=== PATIENT | female | born 1985 | race African-American/Black ===

== ENCOUNTER 2017-03-01 10:31 | Emergency (ER) | payer MEDICAID ==
[~2017-03-01] VITALS: Ht 162.6 cm; Wt 86.0 kg
[2017-03-01 10:33] VITALS: BP 132/77; PULSE 76; RESP 20; TEMP 97.5; O2SAT 100
[2017-03-01 11:28] LABS: AUTOMATED NEUTROPHIL # 4.4 TH/MM3 (1.8-7.7); BASOPHIL % 0.5 % (0.0-2.0); EOSINOPHIL % 0.5 % (0.0-4.0); HEMATOCRIT 36.7 % (35.0-46.0); HEMO FLAGS DIFF FINAL; LYMPH % 31.9 % (9.0-44.0); LYMPHOCYTE # 2.4 TH/MM3 (1.0-4.8); MEAN CELL VOLUME 80.2 FL (80.0-100.0); MEAN CORPUSCULAR HEMOGLOBIN 25.2 PG (27.0-34.0); MEAN CORPUSCULAR HGB CONC 31.4 % (32.0-36.0); MONO % 7.9 % (0.0-8.0); NEUT % 59.2 % (16.0-70.0); PLATELET COUNT 220 TH/MM3 (150-450); RED BLOOD COUNT 4.57 MIL/MM3 (4.00-5.30); RED CELL DISTRIBUTION WIDTH 14.1 % (11.6-17.2); WHITE BLOOD COUNT 7.5 TH/MM3 (4.0-11.0)
--- NOTE | 2017-03-01 11:31 | PD ---
HPI Chief Complaint: Clinical Assoc Problem/Complaint Time Seen by Provider: 11:28 Travel History International Travel<30 days: No Contact w/Intl Traveler<30days: No Traveled to known affect area: No History of Present Illness HPI 31-year-old female that presents to the ED for evaluation of vaginal bleeding and abdominal cramping. Per patient she believes she may be at about 2 months . Per patient her last missed appear was about 2 months to a month and a half. Per patient she had a miscarriage in the past and is concerned about this. She states that the pain is mainly on the pelvic area and moves to the back. Per patient the bleeding had some clots and was moderate. She states that the pain is 3 out of 10 and comes and goes more like a cramping pain. She denies any chest pain or shortness of breath. She denies any STD exposure. No urinary symptoms. No bowel movement issues. Per patient she has not seen anybody for her . She has no allergies to medication. She states that she believes that she is O-. PFSH Past Medical History Thyroid Disease: Yes (UNABLE TO GIVE DETAILS) ?: LMP: 12/30/2016 : 3 Para: 2 Miscarriage: 1 Social History Alcohol Use: Yes (SOCIAL) Tobacco Use: No Substance Use: No Allergies-Medications (Allergen,Severity, Reaction): Coded Allergies: No Known Allergies (Unverified , 03/01/17) Reported Meds & Prescriptions Reported Meds & Active Scripts Active Metronidazole 500 Mg Tab 500 Mg PO BID 7 Days Review of Systems Except as stated in HPI: all other systems reviewed are Neg Physical Exam Narrative GENERAL: SKIN: Warm and dry. HEAD: Atraumatic. Normocephalic. EYES: Pupils equal and round. No scleral icterus. No injection or drainage. ENT: No nasal bleeding or discharge. Mucous membranes pink and moist. Tongue is midline. No uvula deviation. NECK: Trachea midline. No JVD. CARDIOVASCULAR: Regular rate and rhythm. No murmurs, S3, S4. RESPIRATORY: No accessory muscle use. Clear to auscultation. Breath sounds equal bilaterally. GASTROINTESTINAL: Abdomen soft, non-tender, nondistended. Hepatic and splenic margins not palpable. Pelvic exam: Done with female nurse present. Has some minimal vaginal bleeding as well as brownish discharge. OS closed. No cervical tenderness. No lymphadenopathy. MUSCULOSKELETAL: Extremities without clubbing, cyanosis, or edema. No obvious deformities. Full range of motion of the upper and lower extremities bilaterally. 2+ pulses bilaterally. NEUROLOGICAL: Awake and alert. No obvious cranial nerve deficits. Motor grossly within normal limits. Five out of 5 muscle strength in the arms and legs. Normal speech. PSYCHIATRIC: Appropriate mood and affect; insight and judgment normal. Data Data Last Documented VS Vital Signs Date Time Temp Pulse Resp B/P Pulse Ox O2 Delivery O2 Flow Rate FiO2 03/01/17 13:51 97 03/01/17 10:33 97.5 76 20 132/77 Room Air Orders Beta Hcg (Quant/Titer) (03/01/17 10:52) Complete Blood Count With Diff (03/01/17 10:52) Basic Metabolic Panel (Bmp) (03/01/17 10:52) Gc And Chlamydia Pcr (03/01/17 10:52) Complete Rh (03/01/17 10:52) Wet Prep Profile (03/01/17 10:52) Urinalysis - C+S If Indicated (03/01/17 10:52) Iv Access Insert/Monitor (03/01/17 10:52) Ed Urine Pregnancytest Poc (03/01/17 10:52) Us Pelvis Preg(Sgl/1st Gestat) (03/01/17 10:52) Labs Laboratory Tests Test 03/01/17 03/01/17 03/01/17 11:10 11:15 12:15 Urine Color LIGHT-YELLOW Urine Turbidity CLEAR Urine pH 8.0 Urine Specific [place] 1.014 Urine Protein NEG mg/dL Urine Glucose (UA) NEG mg/dL Urine Ketones NEG mg/dL Urine Occult Blood SMALL Urine Nitrite NEG Urine Bilirubin NEG Urine Urobilinogen LESS THAN 2.0 MG/DL Urine Leukocyte Esterase NEG Urine RBC 9 /hpf Urine WBC 1 /hpf Urine Squamous Epithelial <1 /hpf Cells Microscopic Urinalysis Comment CULT NOT INDICATED White Blood Count 7.5 TH/MM3 Red Blood Count 4.57 MIL/MM3 Hemoglobin 11.5 GM/DL Hematocrit 36.7 % Mean Corpuscular Volume 80.2 FL Mean Corpuscular Hemoglobin 25.2 PG Mean Corpuscular Hemoglobin 31.4 % Concent Red Cell Distribution Width 14.1 % Platelet Count 220 TH/MM3 Mean Platelet Volume 8.1 FL Neutrophils (%) (Auto) 59.2 % Lymphocytes (%) (Auto) 31.9 % Monocytes (%) (Auto) 7.9 % Eosinophils (%) (Auto) 0.5 % Basophils (%) (Auto) 0.5 % Neutrophils # (Auto) 4.4 TH/MM3 Lymphocytes # (Auto) 2.4 TH/MM3 Monocytes # (Auto) 0.6 TH/MM3 Eosinophils # (Auto) 0.0 TH/MM3 Basophils # (Auto) 0.0 TH/MM3 CBC Comment DIFF FINAL Differential Comment Sodium Level 138 MEQ/L Potassium Level 3.9 MEQ/L Chloride Level 104 MEQ/L Carbon Dioxide Level 26.9 MEQ/L Anion Gap 7 MEQ/L Blood Urea Nitrogen 9 MG/DL Creatinine 0.66 MG/DL Estimat Glomerular Filtration 127 ML/MIN Rate Random Glucose 92 MG/DL Calcium Level 8.8 MG/DL Human Chorionic Gonadotropin, 556001 MIU/ML Quant Blood Type O POSITIVE Rho(D) Type POSITIVE Clue Cells (Wet Prep) PRESENT Vaginal Trichomonas (Wet Prep) NONE SEEN Vaginal Yeast (Wet Prep) NONE SEEN MDM Medical Decision Making Medical Screen Exam Complete: Yes Emergency Medical Condition: Yes Medical Record Reviewed: Yes Interpretation(s) CBC & BMP Diagram 03/01/17 11:15 beta [place] the 18608w wet prep positive for clue cells UA positive for blood US shows IUP of 8 weeks with normal HR, subarachnoid hemorrhage. Differential Diagnosis Vaginal bleeding versus miscarriage versus versus ectopic versus bleeding during versus infection Narrative Course 31-year-old female that presents to the ED for evaluation of vaginal bleeding and pain. Patient was properly examined and was found to have signs and symptoms concerning for miscarriage versus ectopic. Labs and imaging ordered. Labs and imaging showed IUP with normal heart rate. Patient also has BV. Case was discussed in my attending who agrees with plan. Condition is for recheck in 2 days to make sure that the beta is increasing. Also patient will be treated for this with Flagyl. She was instructed to continue to Alecia vitamins. Tylenol for pain. Close follow with PCP. See ED for any worsening symptoms. Diagnosis Primary Impression: Threatened Additional Impression: BV (bacterial vaginosis) Patient Instructions: General Instructions Additional Instructions: Take medication as prescribed. Continue vitamins. Recheck in 48 hours for reevaluation of the beta hCG. See ED for any worsening symptoms. Follow with PCP. Only Tylenol for pain as needed. Med/Other Pt SpecificInfo: Prescription(s) given Scripts Metronidazole 500 Mg Hve242 Mg PO BID 7 Days Ref 0 Prov:Kerry Tran MD 03/01/17 Disposition: 01 DISCHARGE HOME Condition: Des Yung Mar 01, 2017 11:31
[2017-03-01 11:42] LABS: BLOOD, URINE SMALL (NEG); GLUCOSE,URINE NEG (NEG); KETONE, URINE NEG (NEG); NITRITE,URINE NEG (NEG); SQUAMOUS EPITHELIAL CELL URINE <1 /hpf (0-5); URINE COLOR LIGHT-YELLOW (YELLW/STRAW)
[2017-03-01 11:46] LABS: COMMENT (UR) CULT NOT INDICATED; CULTURE IF INDICATED CULT NOT INDICATED
[2017-03-01 12:26] LABS: BICARBONATE 26.9 MEQ/L (21.0-32.0); POTASSIUM 3.9 MEQ/L (3.5-5.1)
--- NOTE | 2017-03-01 13:44 | RADRPT ---
EXAM DATE/TIME: 03/01/2017 12:49 [facility] COMPARISON: No previous studies available for comparison. INDICATIONS : Pelvic bleeding. LAB(S): Beta-hC,705 MEDICAL HISTORY : . Thyroid disease. SURGICAL HISTORY : section. ENCOUNTER: Initial ACUITY: 4-6 days PAIN SCORE: 7/10 LOCATION: Bilateral pelvis MEASUREMENTS: UTERUS: 11.3 x 6.6 x 6.9 cm ENDOMETRIAL STRIPE: >20 mm RIGHT OVARY: 3.1 x 3.4 x 2.6 cm LEFT OVARY: 2.8 x 2.7 x 1.5 cm CROWN RUMP LENGTH: 2.0 cm = 8 WKS 4 DAYS FHR: 169 BPM FINDINGS: UTERUS: The myometrium has homogeneous echotexture without mass. There is a gestational sac in the endometri al cavity measuring 5.7 x 2.7 x 4.1 cm. Yolk sac is present an embryo is identified with crown-rump l ength measurement of 2.0 cm indicating gestational age of 8 weeks and 4 days. Questionable small subc horionic hemorrhage is identified. RIGHT OVARY: Ovary contains no mass or significant cystic lesion. Follicles are present and largest simple cyst m easures 2.7 cm. LEFT OVARY: Ovary contains no mass or significant cystic lesion. MISCELLANEOUS: No free fluid. CONCLUSION: 1. There is an IUP with estimated age of 8 weeks and 4 days with normal heart rate. There is qu estionable small subchorionic hemorrhage. 2. Multiple right follicles are present measuring up to 2.7 cm. Richard Mcmahan MD on March 01, 2017 at 13:39 Board Certified Radiologist. This report was verified electronically.
[2017-03-01] MEDS ORDERED: METR500T10 PO (13:47)
[2017-03-01 15:58] LABS: CHLAMYDIA PCR NOT DETECTED (NOT DETECT); NEISSERIA PCR NOT DETECTED (NOT DETECT)
== END 2017-03-01 14:46 | disposition home or self-care (01) ==
LOC: NEPD 10:31
DX: O20.0 Threatened abortion (principal); N76.0 Acute vaginitis; Z3A.08 8 weeks gestation of pregnancy
CPT/HCPCS: 76801; 80048; 81001; 84702; 84703; 85025; 86901; 87210; 87491; 87591; 99284

== ENCOUNTER 2017-03-04 10:46 | Emergency (ER) | payer MEDICAID ==
[~2017-03-04] VITALS: Ht 162.6 cm; Wt 80.0 kg
[~2017-03-04 10:46] MED LIST: METR500T10 PO
[2017-03-04 10:51] VITALS: BP 115/66; PULSE 78; RESP 18; TEMP 98.3; O2SAT 100
--- NOTE | 2017-03-04 11:25 | PD ---
HPI Chief Complaint: Related Problem Time Seen by Provider: 11:20 Travel History International Travel<30 days: No Contact w/Intl Traveler<30days: No Traveled to known affect area: No History of Present Illness HPI 31 YO approximately 9 weeks (by ultrasound) F presents to the ED for evaluation of threatened . Patient was seen in the ED on 03/01 and diagnosed with threatened and BV. She states that abdominal cramping and very light vaginal bleeding continues today. Denies fever, chills, nausea, vomiting, dysuria or back pain. Endorses compliance with Flagyl. PFSH Past Medical History Thyroid Disease: Yes (UNABLE TO GIVE DETAILS) ?: : 3 Para: 2 Miscarriage: 1 Social History Alcohol Use: Yes (SOCIAL) Tobacco Use: No Substance Use: No Allergies-Medications (Allergen,Severity, Reaction): Coded Allergies: No Known Allergies (Unverified , 03/01/17) Reported Meds & Prescriptions Reported Meds & Active Scripts Active Metronidazole 500 Mg Tab 500 Mg PO BID 7 Days Review of Systems Except as stated in HPI: all other systems reviewed are Neg Physical Exam Narrative GENERAL: Well-nourished, well-developed black female in no acute distress. SKIN: Focused skin assessment warm/dry. HEAD: Normocephalic. EYES: No scleral icterus. No injection or drainage. NECK: Supple, trachea midline. No JVD or lymphadenopathy. CARDIOVASCULAR: Regular rate and rhythm without murmurs, gallops, or rubs. RESPIRATORY: Breath sounds equal bilaterally. No accessory muscle use. GASTROINTESTINAL: Abdomen soft, non-tender, nondistended. No suprapubic tenderness. Palpable masses. Active bowel sounds. GENITOURINARY: Normal external genitalia without lesions or erythema. Vaginal vault without blood or drainage. Cervical os, thick, firm and closed. MUSCULOSKELETAL: No cyanosis, or edema. Ambulatory. Moves extremity spontaneously. BACK: Nontender without obvious deformity. No CVA tenderness. Data Data Last Documented VS Vital Signs Date Time Temp Pulse Resp B/P Pulse Ox O2 Delivery O2 Flow Rate FiO2 03/04/17 12:53 98.4 90 18 141/73 99 Nasal Cannula Orders Beta Hcg (Quant/Titer) (03/04/17 10:57) Ed Poc Ultrasound (03/04/17 12:21) Labs Laboratory Tests Test 03/04/17 11:10 Human Chorionic Gonadotropin, 935577 MIU/ML Quant MDM Medical Decision Making Medical Screen Exam Complete: Yes Emergency Medical Condition: Yes Medical Record Reviewed: Yes (visit 03/01: O+, US: IUP 8w 4d, normal heart rate. HCG [id number]) Differential Diagnosis threatened versus incomplete AB versus retained products of conception versus IUP versus other Narrative Course 31 YO approximately 9 weeks (by ultrasound) F presents to the ED for evaluation of threatened . Patient was seen in the ED on 03/01 and diagnosed with threatened and BV. She states that abdominal cramping and very light vaginal bleeding continues today. Denies fever, chills, nausea, vomiting, dysuria or back pain. Endorses compliance with Flagyl. Vitals reviewed. Physical exam is unremarkable. No blood in the vaginal canal. Cervix thick, firm, closed. Bedside ultrasound reveals intrauterine with visible heartbeat. HCG [id number] today. [id number] at previous visit. I discussed the results of the workup with the patient. I informed her that as long as her abdominal cramping and vaginal bleeding continues this is still considered threatened . She is instructed to follow-up here or with the sheriff officer, return here for worsening symptoms. She indicated understanding of instructions and is agreeable to the care plan. She is stable and discharged home. Procedures Procedure Narrative Emergency Department Pelvic ultrasound was performed with patient consent. The curvilinear probe was used in the transverse and sagittal views within the suprapubic region revealing + intrauterine . heart rate was ~ 300. Diagnosis Primary Impression: Threatened Referrals: Acquisition Advisor Patient Instructions: General Instructions, Threatened Miscarriage (ED) Additional Instructions: Rest, hydrate. Follow-up with the sheriff officer as discussed. Return to the ED for worsening symptoms or any urgent or emergent medical condition. Med/Other Pt SpecificInfo: Prescription(s) given Disposition: DISCHARGE HOME Condition: Stable Yakelin Vincent Mar 04, 2017 11:25
[2017-03-04 12:11] LABS: BETA HCG QUANT 116208 MIU/ML (0-5)
[2017-03-04 12:53] VITALS: BP 141/73; TEMP 98.4
== END 2017-03-04 12:56 | disposition home or self-care (01) ==
LOC: NEPD 10:46
DX: O20.0 Threatened abortion (principal); E07.9 Disorder of thyroid, unspecified; Z3A.09 9 weeks gestation of pregnancy
CPT/HCPCS: 84702

== ENCOUNTER 2017-09-30 14:17 | Inpatient (IN) | payer MEDICAID ==
[~2017-09-30] VITALS: Ht 162.6 cm; Wt 100.0 kg
[2017-09-30] VITALS (16 sets, daily range): BP systolic 116–129; BP diastolic 59–70; PULSE 69–227; RESP 15–24; TEMP 97.6–98; O2SAT 100
[~2017-09-30 14:17] MED LIST changes: +LACTATED RINGER'S 1000 ML INJ 1,000 ML IV ONE; +METR1TAB76 PO; -METR500T10 PO; +ONDANSETRON HCL 4 MG/2 ML VIAL IV ONE; +OXYTOCIN 10 UNIT/ML AMP IV ONE; +PHENYLEPH/NS 1000 MCG/10 ML SYR IV ONE; +ePHEDrine/NS 25 MG/5 ML SYRINGE IV ONE
--- NOTE | 2017-09-30 14:49 | HHI.HP ---
HPI Chief Complaint Repeat section Date Seen: Sep 30, 2017 Time Seen: 14:45 Travel History International Travel<30 Days: No Contact w/Intl Traveler<30Days: No Known Affected Area: No History of Present Illness HPI Patient is a at 39 weeks and 3 days who presents for a scheduled section. She has received care at [facility]'s office, starting at 19 weeks gestation. She denies any complications during this . She denies vaginal bleeding and fluid leakage. She has had some irregular contractions over the past two days. She endorses positive movement. Last meal at 8-9 p.m. Last drink, apple juice, at 5 a.m. Weeks Gestation: 39 Para: 2 : 3 History Past Medical History Narrative Medical Parathyroid disease - unknown Obstetric History Obstetric History - 10 years ago, full-term, induction -> failure to progress -> primary section G2 - 5 years ago, full-term, repeat section G3 - current ; no complications Of note, patient reports infection of incision site with prior sections. Past Surgical History Narrative Surgical section x2 Family History Family History: Negative Social History Alcohol Use: No Tobacco Use: No Substance Abuse: No Allergies-Medications (Allergen,Severity, Reaction): Coded Allergies: No Known Allergies (Unverified Allergy, Unknown, 09/30/17) Home Meds Discontinued Scripts Metronidazole (Metronidazole) 500 Mg Tab, 500 MG PO BID for Infection for 7 Days , TAB 0 Refills Prov:Kerry Tran MD 03/01/17 Review of Systems Except as stated in HPI: all other systems reviewed are Neg Physical Exam Narrative GENERAL: Well-nourished, well-developed patient. SKIN: Warm and dry. HEAD: Normocephalic and atraumatic. EYES: No scleral icterus. No injection or drainage. ENT: No nasal drainage noted. Mucous membranes pink. Airway patent. NECK: Supple, trachea midline. No JVD. CARDIOVASCULAR: Regular rate and rhythm without murmurs, gallops, or rubs. RESPIRATORY: Breath sounds equal bilaterally. No accessory muscle use. ABDOMEN/GI: Abdomen soft, non-tender, bowel sounds present, no rebound, no guarding. Well-healed, horizontal incision over lower abdomen from prior sections. Gravid to 39 weeks size GENITOURINARY: Membranes: Intact Uterine Contractions: None FHT's: Category: 1 Baseline: 135 Reactive: Reactive Variability: Moderate Decels: None EXTREMITIES: No cyanosis or edema. BACK: Nontender without obvious deformity. No CVA tenderness. NEUROLOGICAL: Awake and alert. Motor and sensory grossly within normal limits. Five out of 5 muscle strength in all muscle groups. Normal speech. Caprini VTE Risk Assessment Caprini VTE Risk Assessment: No/Low Risk (score <= 1) Caprini Risk Assessment Model Point Value = 1 Point Value = 2 Point Value = 3 Point Value = 5 Age 41-60 Minor surgery BMI > 25 kg/m2 Swollen legs Varicose veins or History of unexplained or recurrent spontaneous Oral contraceptives or hormone replacement Sepsis (< 1 month) Serious lung disease, including pneumonia (< 1 month) Abnormal pulmonary function Acute myocardial infarction Congestive heart failure (< 1 month) History of inflammatory bowel disease Medical patient at bed rest Age 61-74 Arthroscopic surgery Major open surgery (> 45 min) Laparoscopic surgery (> 45 min) Malignancy Confined to bed (> 72 hours) Immobilizing plaster cast Central venous access Age >= 75 History of VTE Family history of VTE Factor V Leiden Prothrombin [id number] Lupus anticoagulant Anticardiolipin antibodies Elevated serum homocysteine Heparin-induced thrombocytopenia Other congenital or acquired thrombophilia Stroke (< 1 month) Elective arthroplasty Hip, pelvis, or leg fracture Acute spinal cord injury (< 1 month) Prophylaxis Regimen Total Risk Factor Score Risk Level Prophylaxis Regimen 0-1 Low Early ambulation 2 Moderate Order ONE of the following: *Sequential Compression Device (SCD) *Heparin 5000 units SQ BID 3-4 Higher Order ONE of the following medications: *Heparin 5000 units SQ TID *Enoxaparin/Lovenox 40 mg SQ daily (WT < 150 kg, CrCl > 30 mL/min) *Enoxaparin/Lovenox 30 mg SQ daily (WT < 150 kg, CrCl > 10-29 mL/min) *Enoxaparin/Lovenox 30 mg SQ BID (WT < 150 kg, CrCl > 30 mL/min) AND/OR *Sequential Compression Device (SCD) 5 or more Highest Order ONE of the following medications: *Heparin 5000 units SQ TID (Preferred with Epidurals) *Enoxaparin/Lovenox 40 mg SQ daily (WT < 150 kg, CrCl > 30 mL/min) *Enoxaparin/Lovenox 30 mg SQ daily (WT < 150 kg, CrCl > 10-29 mL/min) *Enoxaparin/Lovenox 30 mg SQ BID (WT < 150 kg, CrCl > 30 mL/min) AND *Sequential Compression Device (SCD) Data Data Vital Signs Reviewed: Yes Group B Strep: Positive Assessment/Plan Assessment and Plan Patient is a at 39 weeks and 3 days who presents for a scheduled section. She has received care at [facility] office, starting at 19 weeks gestation. 1. IUP- Category I tracing, reassuring. 2. Repeat . 3. GBS positive. 4. BV in early . Treated with Flagyl. Patient discussed with OB hospitalist. Patricia Montesinos MD R1 Sep 30, 2017 14:49
[2017-09-30] MEDS ORDERED: LACTATED RINGER'S 1000 ML INJ 1,000 ML IV ONE ×2 (15:04→22:09)
[2017-09-30 15:20] LABS: AUTOMATED NEUTROPHIL # 6.4 TH/MM3 (1.8-7.7); BASOPHIL % 0.3 % (0.0-2.0); EOSINOPHIL % 0.5 % (0.0-4.0); HEMATOCRIT 32.9 % (35.0-46.0); HEMOGLOBIN 10.6 GM/DL (11.6-15.3); LYMPH % 21.6 % (9.0-44.0); MEAN CELL VOLUME 80.2 FL (80.0-100.0); MEAN CORPUSCULAR HEMOGLOBIN 25.9 PG (27.0-34.0); MEAN CORPUSCULAR HGB CONC 32.3 % (32.0-36.0); MEAN PLATELET VOLUME 8.2 FL (7.0-11.0); MONOCYTE # 0.8 TH/MM3 (0-0.9); NEUT % 68.6 % (16.0-70.0); PLATELET COUNT 219 TH/MM3 (150-450); RED CELL DISTRIBUTION WIDTH 15.8 % (11.6-17.2); WHITE BLOOD COUNT 9.3 TH/MM3 (4.0-11.0)
[2017-09-30 15:34] LABS: BACTERIA, URINE MOD /hpf; BILIRUBIN, URINE NEG (NEG); BLOOD, URINE NEG (NEG); GLUCOSE,URINE NEG (NEG); KETONE, URINE NEG (NEG); MUCUS URINE FEW /lpf (OCC); NITRITE,URINE NEG (NEG); PH, URINE 8.5 (5.0-8.5); SQUAMOUS EPITHELIAL CELL URINE 28 /hpf (0-5); TRANSITIONAL EPI CELLS, URINE 1 /hpf; URINE COLOR YELLOW (YELLW/STRAW); URINE LEUKOCYTE ESTERASE LARGE (NEG)
[2017-09-30] MEDS ORDERED: ceFAZolin 2 GM PREMIX 50 ML IV SCH (16:15)
[2017-09-30] MEDS ORDERED: CITRIC ACID-SODIUM CITRATE LIQ 30 ML UDC PO SCH (16:45)
[2017-09-30] MEDS: LACTATED RINGER'S 1000 ML INJ 1,000 ML IV SCH ×3 (18:10→23:56)
[2017-09-30] MEDS ORDERED: ACETAMINOPHEN 1000 MG/100 ML 100 ML IV ONE (20:25)
[2017-09-30] MEDS ORDERED: MORPHINE SULFATE PF 5 MG/10 ML VIAL ONE (20:25)
[2017-09-30] MEDS ORDERED: EPIDURAL-NO SYSTEMIC NARCOTICS PRN (20:38)
[2017-09-30] MEDS ORDERED: EPIDURAL-NALOXONE HCL 0.4 MG/ML AMP IV PUSH PRN (20:38)
[2017-09-30] MEDS ORDERED: EPIDURAL-DO NOT ADMINISTER ANTICOAGULANTS PRN (20:38)
[2017-09-30] MEDS ORDERED: EPIDURAL-DIPHENHYDRAMINE HCL 50 MG CAP PO PRN (20:38)
[2017-09-30] MEDS ORDERED: EPIDURAL-DIPHENHYDRAMINE HCL 50 MG/ML VIAL IV PUSH PRN (20:38)
--- NOTE | 2017-09-30 21:41 | PD.OB.DELI ---
Procedure Note Section Procedure Pre Op Diagnosis: (1) 39 weeks gestation of (2) Previous delivery affecting , antepartum (3) Status post repeat low transverse section Post Op Diagnosis: Performed by Lesly Villalobos Procedure: Repeat Low Transverse Sec Indication for delivery: Desired elective repeat Previous condition: Uterine Window Informed consent obtained: For anesthesia, For procedure Confirmed correct: Time-out taken Anesthesia: Spinal Medication prior to procedure: Antibiotics, IV Urinary catheter: Inserted using sterile technique Sterile preparation: Duraprep Position: Supine with wedge to left side Operative Features Skin Incision: Pfannenstiel Uterine Incision: Low transverse w/knife / blunt ext Membranes Ruptured: Artificially, Appearance of fluid (clear fluid) Presentation: Occiput posterior Delivery date: Sep 30, 2017 Delivery time: 21:13 Delivery of infant: Uneventful Infant: Female One Minute : 9 Five Minute : 9 Weight: 3550 Status of : Viable Placenta delivered: Intact Estimated blood loss: 600 cc Procedure tolerated: Well Maternal Condition: Stable Condition: Stable Lesly Villalobos MD Sep 30, 2017 21:41
[2017-09-30] MEDS ORDERED: SIMETHICONE 80 MG CHEWABLE TAB PO PRN (21:45)
[2017-09-30] MEDS ORDERED: SODIUM CHLORIDE 0.9% FLUSH 10 ML FLUSH IV FLUSH PRN (21:45)
[2017-09-30] MEDS ORDERED: OXYTOCIN 30 UNITS-500ML PREMIX 500 ML IV ONE (21:45)
[2017-09-30] MEDS ORDERED: oxyCODONE/ACETAMINOPHEN 5 MG/325 MG TAB PO PRN (21:45)
[2017-09-30] MEDS ORDERED: ONDANSETRON HCL 4 MG/2 ML VIAL IV PUSH PRN (21:45)
--- NOTE | 2017-09-30 22:07 | MP ---
cc: AALIYAH QUIÑONES M.D. DATE OF SURGERY 09/30/2017 PREOPERATIVE DIAGNOSES 1. 39 weeks gestation. 2. Previous section x2 for repeat. POSTOPERATIVE DIAGNOSES 1. 39 weeks gestation. 2. Previous section x2 for repeat. PROCEDURE Repeat low transverse section without extension. ESTIMATED BLOOD LOSS 600 cc MEDICATIONS Ancef 2 grams given preoperatively. ANESTHESIA Anesthetic was a spinal. COUNTS Correct x3 DRAINS Alfredo to gravity. FINDINGS 1. Normal tubes and ovaries bilaterally. 2. A 2 x 6 cm lower uterine segment window. 3. Infant female in a vertex presentation with Apgars of 9 and 9, delivered at 2113, weight was 3550 grams, 7 pounds 13 ounces in the occiput posterior presentation. DESCRIPTION OF PROCEDURE The patient taken back to the operating room. Prepped and draped in the usual sterile fashion, placed in the dorsosupine position with a wedge to her left side. After adequate anesthetic was performed a Pfannenstiel incision was made into the skin removing her old scar and then taken down to the fascia. The fascia was nicked in the midline, extended bilaterally then taken off the rectus muscles. The muscles were divided in the midline. Peritoneum was adhesed to the omentum which was taken down sharply with the Bovie. Vesicouterine peritoneum was noted to be well away from the field and a large uterine window was noted. The bag of water was ruptured returning clear fluid. The infant was in occiput posterior presentation and was delivered with being handed off to the resuscitation team after a 45-second cord clamping delay. The placenta was delivered intact spontaneously and the endometrial cavity was curetted with a moist laparotomy sponge. Vesicouterine perineum was taken down in order to find a thin layer of lower uterine segment. Hysterotomy incision was then repaired in a running locking fashion with #1 chromic suture. Good hemostasis was noted and gutters were cleaned of all blood clot and debris. The fascia was closed with a #1 PDS in running fashion. Subcutaneous tissues were made hemostatic with the Bovie and subcuticular suture of Monocryl 3-0 was placed to the skin. She tolerated the procedure well. She was taken back to recovery room in good condition. MD RHONA Corrales/FRANK /9:39 PM /9:48 PM
[2017-09-30] MEDS ORDERED: OXYTOCIN 30 UNITS-500ML PREMIX 500 ML ONE (22:19)
[2017-10-01] VITALS: BP 122/80; PULSE 76; RESP 18; TEMP 97.7; O2SAT 99
[2017-10-01] MEDS: oxyCODONE/ACETAMINOPHEN 5 MG/325 MG TAB PO PRN ×4 (00:12→21:54)
[2017-10-01] MEDS ORDERED: LACTATED RINGER'S 1000 ML INJ 1,000 ML IV SCH (02:44)
[2017-10-01 04:00] VITALS: BP 126/78; PULSE 72; RESP 16; TEMP 98; O2SAT 99
[2017-10-01] MEDS: IBUPROFEN 600 MG TAB PO PRN ×2 (04:24→17:12)
[2017-10-01 05:55] LABS: AUTOMATED NEUTROPHIL # 8.3 TH/MM3 (1.8-7.7); BASOPHIL % 0.3 % (0.0-2.0); EOSINOPHIL % 0.1 % (0.0-4.0); HEMATOCRIT 28.6 % (35.0-46.0); HEMOGLOBIN 9.3 GM/DL (11.6-15.3); LYMPH % 18.7 % (9.0-44.0); LYMPHOCYTE # 2.1 TH/MM3 (1.0-4.8); MEAN CELL VOLUME 80.5 FL (80.0-100.0); MEAN CORPUSCULAR HGB CONC 32.3 % (32.0-36.0); MEAN PLATELET VOLUME 8.2 FL (7.0-11.0); MONO % 6.9 % (0.0-8.0); MONOCYTE # 0.8 TH/MM3 (0-0.9); PLATELET COUNT 191 TH/MM3 (150-450); RED BLOOD COUNT 3.56 MIL/MM3 (4.00-5.30); WHITE BLOOD COUNT 11.2 TH/MM3 (4.0-11.0)
[2017-10-01] MEDS ORDERED: OXYTOCIN 30 UNITS-500ML PREMIX 500 ML IV PRN (07:45)
[2017-10-01 08:00] VITALS: BP 122/69; PULSE 80; RESP 18; TEMP 98
[2017-10-01] MEDS ORDERED: SODIUM CHLORIDE 0.9% FLUSH 10 ML FLUSH IV FLUSH SCH (09:00)
--- NOTE | 2017-10-01 09:16 | HHI.OB ---
Subjective Post Operative Day: 1 Remarks Patient is a 31-year-old delivered at 39 weeks and 3 days. Patient is day 1 after repeat section. Patient's pain is well- controlled. Patient reports no bleeding. Patient reports eating and drinking with some nausea, relieved by medication. She denies vomiting. Patient has not passed gas or has had a bowel movement. Patient denies chest pain and shortness of breath. Patient has not been ambulating. She denies lower extremity pain. Patient reports itching despite Benadryl. Patient reports desire for contraception; she will discuss oral contraceptive pills with her HYDROGRAPHY TEACHER at her 6 week follow-up. Patient has decided to formula feed while at the hospital but intends to breast feed once at home. Objective Vitals/I&O Vital Signs Date Time Temp Pulse Resp B/P (MAP) Pulse Ox O2 Delivery O2 Flow Rate FiO2 10/01/17 04:00 98.0 72 16 126/78 (94) 99 10/01/17 00:00 97.7 76 18 122/80 (94) 99 09/30/17 23:13 97.6 09/30/17 22:59 129/70 (89) 09/30/17 22:57 70 22 100 09/30/17 22:45 120/70 (87) 09/30/17 22:41 69 18 100 09/30/17 22:30 77 22 119/66 (83) 100 09/30/17 22:15 124/70 (88) 09/30/17 22:13 24 09/30/17 22:13 75 100 09/30/17 22:00 78 20 129/60 (83) 100 09/30/17 21:45 97.9 90 15 120/60 (80) 100 09/30/17 19:35 94 123/70 (87) 09/30/17 19:32 98.0 18 09/30/17 14:55 227 09/30/17 14:50 76 09/30/17 14:48 77 116/59 (78) 09/30/17 14:45 78 Result Diagram: 10/01/17 0524 Objective Remarks GENERAL: Well-nourished, well-developed patient. CARDIOVASCULAR: Regular rate and rhythm without murmurs, gallops, or rubs. RESPIRATORY: Breath sounds equal bilaterally. No accessory muscle use. ABDOMEN/GI: Abdomen soft, minimally tender, hypoactive bowel sounds. Incision: Pressure dressing in place. Dry. Fundus: Firm, minimally tender at umbilicus. GENITOURINARY: No bleeding. EXTREMITIES: No cyanosis or edema, non-tender, without signs of DVT. Medications and IVs Current Medications Medications (Trade) Dose Ordered Sig/Gianna Route Start Time Stop Time Status Last Admin Lactated Ringer's 1,000 ml @ 150 mls/hr Q6H40M IV 09/30/17 15:34 09/30/17 18:10 Cefazolin Sodium/ Dextrose 50 ml @ 100 mls/hr FIRE MARSHAL IV 09/30/17 16:15 10/04/17 16:14 09/30/17 20:20 (Bicitra Liq) 30 ml FIRE MARSHAL PO 09/30/17 16:45 10/04/17 16:44 09/30/17 20:20 Lactated Ringer's 1,000 ml @ 100 mls/hr Q10H IV 10/01/17 02:44 10/01/17 22:43 10/01/17 00:12 Oxytocin 500 ml @ 100 mls/hr UNSCH X1 PRN IV 10/01/17 07:45 10/02/17 07:44 (NS Flush) 2 ml BID IV FLUSH 10/01/17 09:00 (NS Flush) 2 ml UNSCH PRN IV FLUSH 09/30/17 21:45 (Mylicon Chew) 80 mg QID PRN PO 09/30/17 21:45 (Motrin) 600 mg Q6H PRN PO 09/30/17 21:45 10/01/17 04:24 (Percocet 5-325 Mg) 1 tab Q4H PRN PO 09/30/17 21:45 (Percocet 5-325 Mg) 2 tab Q4H PRN PO 09/30/17 21:45 10/01/17 04:24 (Nika-Colace) 2 tab Q12H PRN PO 09/30/17 21:45 (M-M-R Ii Inj) 0.5 ml ONCE ONCE SQ 10/01/17 16:00 10/01/17 16:01 (Boostrix Inj) 0.5 ml ONCE ONCE IM 10/01/17 16:00 10/01/17 16:01 10/01/17 00:16 (Zofran Inj) 4 mg Q6H PRN IV PUSH 09/30/17 21:45 10/01/17 04:28 Miscellaneous Information NO SYSTEMIC NARCOTICS TO BE GIVEN FO... UNSCH PRN .XX 09/30/17 20:38 10/01/17 20:37 (Narcan Inj) 0.4 mg UNSCH PRN IV PUSH 09/30/17 20:38 10/01/17 20:37 (Benadryl Inj) 25 mg Q6H PRN IV PUSH 09/30/17 20:38 10/01/17 20:37 10/01/17 04:28 (Benadryl) 50 mg Q6H PRN PO 09/30/17 20:38 10/01/17 20:37 Miscellaneous Information ALL NURSING DEPARTMENTS UNSCH PRN .XX 09/30/17 20:38 10/01/17 20:37 Assessment/Plan Assessment and Plan Patient is a 31-year-old delivered at 39 weeks and 3 days. Patient is day 1 after repeat section. * Continue routine care. * Motrin and Percocet when necessary for pain. * Encourage OOB. * 1 week follow-up for incision check. * Pelvic rest for 6 weeks will need follow-up appointment at that time. * Contraception: Will discuss oral contraceptive pills with HYDROGRAPHY TEACHER at 6 week follow-up. * Anticipate discharge tomorrow or [place]. Patient discussed with OB hospitalist. Patricia Montesinos MD R1 Oct 01, 2017 09:16
[2017-10-01] MEDS: DOCUSATE SODIUM 50 MG/SENNA 8.6 MG TAB PO PRN (09:42)
[2017-10-01 12:00] VITALS: BP 118/77; PULSE 71; RESP 16; TEMP 98
[2017-10-01 16:00] VITALS: BP 120/71; PULSE 79; RESP 18; TEMP 98.1
[2017-10-01] MEDS ORDERED: MEASLES, MUMPS, RUBELLA VACCINE 0.5 ML VIAL SQ ONE (16:00)
[2017-10-01] MEDS ORDERED: DIPHTH/TETANUS/ACEL PERTUSSIS (BOOSTER) 0.5 ML VIAL/PFS IM ONE (16:00)
[2017-10-01] MEDS: LACTATED RINGER'S 1000 ML INJ 1,000 ML IV SCH ×2 (18:14→19:20)
[2017-10-01 20:00] VITALS: BP 125/80; PULSE 70; RESP 18; TEMP 97.9
[2017-10-02] MEDS: oxyCODONE/ACETAMINOPHEN 5 MG/325 MG TAB PO PRN ×3 (02:40→14:06)
[2017-10-02] MEDS: IBUPROFEN 600 MG TAB PO PRN ×3 (02:40→14:06)
[2017-10-02 08:00] VITALS: BP 110/76; PULSE 86; RESP 16; TEMP 98
[2017-10-02] MEDS: DOCUSATE SODIUM 50 MG/SENNA 8.6 MG TAB PO PRN (08:13)
--- NOTE | 2017-10-02 08:39 | HHI.OB ---
Subjective Post Operative Day: 2 Remarks Patient is a 31-year-old delivered at 39 weeks and 3 days. Patient is day 2 after repeat section. Patient's pain is well- controlled. Patient reports no bleeding. Patient reports little eating but drinking without nausea or vomiting. Patient has not passed gas or has had a bowel movement. Patient denies chest pain and shortness of breath. Patient has been ambulating; she denies lower extremity pain. Patient reports subjective fever and burning with urination. Patient reports desire for contraception; she will discuss oral contraceptive pills with her EVENT MARKETING ASSISTANT at her 6 week follow-up. Patient has decided to formula feed while at the hospital but intends to breast feed once at home. Objective Vitals/I&O Vital Signs Date Time Temp Pulse Resp B/P (MAP) Pulse Ox O2 Delivery O2 Flow Rate FiO2 10/01/17 20:00 97.9 70 18 125/80 (95) 10/01/17 16:00 98.1 79 18 120/71 (87) 10/01/17 12:00 98.0 71 16 118/77 (91) Result Diagram: 10/01/17 0524 Objective Remarks GENERAL: Well-nourished, well-developed patient. CARDIOVASCULAR: Regular rate and rhythm without murmurs, gallops, or rubs. RESPIRATORY: Breath sounds equal bilaterally. No accessory muscle use. ABDOMEN/GI: Abdomen soft, minimally tender, positive bowel sounds. Incision: Intact. Clean. Dry. Fundus: Firm, minimally tender at umbilicus. GENITOURINARY: No bleeding. EXTREMITIES: No cyanosis or edema, non-tender, without signs of DVT. Medications and IVs Current Medications Medications (Trade) Dose Ordered Sig/Gianna Route Start Time Stop Time Status Last Admin Lactated Ringer's 1,000 ml @ 150 mls/hr Q6H40M IV 09/30/17 15:34 09/30/17 18:10 Cefazolin Sodium/ Dextrose 50 ml @ 100 mls/hr ETCHER APPRENTICE IV 09/30/17 16:15 10/04/17 16:14 09/30/17 20:20 (Bicitra Liq) 30 ml ETCHER APPRENTICE PO 09/30/17 16:45 10/04/17 16:44 09/30/17 20:20 (NS Flush) 2 ml BID IV FLUSH 10/01/17 09:00 (NS Flush) 2 ml UNSCH PRN IV FLUSH 09/30/17 21:45 (Mylicon Chew) 80 mg QID PRN PO 09/30/17 21:45 (Motrin) 600 mg Q6H PRN PO 09/30/17 21:45 10/02/17 08:13 (Percocet 5-325 Mg) 1 tab Q4H PRN PO 09/30/17 21:45 10/01/17 09:42 (Percocet 5-325 Mg) 2 tab Q4H PRN PO 09/30/17 21:45 10/02/17 08:13 (Nika-Colace) 2 tab Q12H PRN PO 09/30/17 21:45 10/02/17 08:13 (Zofran Inj) 4 mg Q6H PRN IV PUSH 09/30/17 21:45 10/01/17 04:28 Assessment/Plan Assessment and Plan Patient is a 31-year-old delivered at 39 weeks and 3 days. Patient is day 2 after repeat section. * Continue routine care. * Motrin and Percocet when necessary for pain. * Encourage OOB. * Vitals signs wnl. UA - pending. * 1 week follow-up for incision check. * Pelvic rest for 6 weeks will need follow-up appointment at that time. * Contraception: Will discuss oral contraceptive pills with EVENT MARKETING ASSISTANT at 6 week follow-up. * Anticipate discharge tomorrow. Patient discussed with OB hospitalist. Patricia Montesinos MD R1 Oct 02, 2017 08:39
[2017-10-02] MEDS ORDERED: OXYC1TAB63 PO (09:08)
[2017-10-02] MEDS ORDERED: FERR325T18 PO (09:08)
[2017-10-02] MEDS ORDERED: IBUP-232 PO (09:08)
[2017-10-02] MEDS ORDERED: PRENTAB7 PO (09:08)
--- NOTE | 2017-10-02 09:09 | HHI.DCPOC ---
Discharge Care Plan Diagnosis: (1) delivery delivered Your Health Problems Are: delivery Report Symptoms to Your Doctor -Temperature above 100.5 degrees -Redness, of incision or excessive or foul smelling drainage -Unusual pain or calf pain -Increased vaginal bleeding -Painful or difficulty urinating -Feelings of extreme sadness or anxiety after 2 weeks Goals to Promote Your Health * To prevent worsening of your condition and complications * To maintain your health at the optimal level Directions to Meet Your Goals Take your medications as prescribed Follow your dietary instruction Follow activity as directed Ensure plenty of rest for recovery Drink fluids for hydration Keep your appointments as scheduled Take your immunizations and boosters as scheduled If your symptoms worsen call your PCP, if no PCP go to Urgent Care Center or Emergency Room Smoking is Dangerous to Your Health. Avoid second hand smoke Call the 24-hour crisis hotline for domestic abuse at Patricia Montesinos MD R1 Oct 02, 2017 09:09
[2017-10-02 09:50] LABS: BILIRUBIN, URINE NEG (NEG); BLOOD, URINE NEG (NEG); GLUCOSE,URINE NEG (NEG); KETONE, URINE NEG (NEG); NITRITE,URINE NEG (NEG); SQUAMOUS EPITHELIAL CELL URINE 1 /hpf (0-5); URINE COLOR LIGHT-YELLOW (YELLW/STRAW); URINE LEUKOCYTE ESTERASE MOD (NEG)
== END 2017-10-02 17:54 | disposition home or self-care (01) | DRG 766 ==
LOC: H2EB 14:17 → H1EA 23:28
PROVIDERS: ADMIT Obstetrics & Gynecology Obstetrics; ATTEND Obstetrics & Gynecology Obstetrics
PROC: 10D00Z1 Extraction of Products of Conception, Low, Open Approach (ICD-10-PCS; principal; 2017-09-30)
DX: O34.211 Maternal care for low transverse scar from previous cesarean delivery (principal); O99.824 Streptococcus B carrier state complicating childbirth; Z37.0 Single live birth; Z3A.39 39 weeks gestation of pregnancy
CPT/HCPCS: 80307; 81001; 85025; 86850; 86900; 86901; 87086; 90715; J0131; J0690; J1200; J2274; J2370; J2405; J2590; J7120